=== PATIENT | male | born 1990 | race Caucasian/White ===

== ENCOUNTER → 2023-07-14 | Outpatient (CLI) | payer BC ==
[2023-07-16 16:07] LABS: ALTERNARIA ALTERNATA, IGE <0.10 kU/L (Class 0); AMERICAN ELM, IGE 1.29 kU/L (Class II); ASPERGILLUS FUMIGATU, IGE <0.10 kU/L (Class 0); BERMUDA GRASS, IGE 4.89 kU/L (Class IV); BIRCH, COMMON SILVER IGE 1.67 kU/L (Class III); CLADOSPORIUM HERBARU, IGE <0.10 kU/L (Class 0); D PTERONYSSINUS 0.12 kU/L (Class 0/I); DOG DANDER, IGE 0.37 kU/L (Class I); MAPLE LEAF SYCAMORE, IGE 1.43 kU/L (Class III); MAPLE/BOX ELDER, IGE 1.37 kU/L (Class II); MOUSE URINE IGE <0.10 kU/L (Class 0); PENICILLIUM CHRYSOGENUM, IGE <0.10 kU/L (Class 0); ROUGH PIGWEED, IGE 1.36 kU/L (Class II); SHEEP SORREL (DOCK), IGE 1.38 kU/L (Class II); WALNUT TREE, IGE 1.46 kU/L (Class III); WHITE ASH, IGE 1.37 kU/L (Class II); WHITE MULBERRY, IGE 1.05 kU/L (Class II); WHITE OAK, IGE 3.57 kU/L (Class III)
[2023-07-16 18:06] LABS: CODFISH, IGE <0.10 kU/L (Class 0); EGG WHITE, IGE <0.10 kU/L (Class 0); MILK (COW), IGE <0.10 kU/L (Class 0); PEANUT, IGE 2.13 kU/L (Class III); SOYBEAN, IGE 1.27 kU/L (Class II); WHEAT, IGE 1.34 kU/L (Class II)
[2023-07-17 13:07] LABS: BUMBLEBEE IGE 1.24 kU/L (Class II); HONEYBEE, IGE 1.84 kU/L (Class III); WHITE FACE HORNET, IGE 3.62 kU/L (Class III); YELLOW HORNET, IGE 2.02 kU/L (Class III)
== END | disposition home or self-care (01) ==
LOC: LAB 11:41
PROVIDERS: ATTEND Specialist
DX: J30.1 Allergic rhinitis due to pollen (principal)